=== PATIENT | female | born 1960 | race Caucasian/White ===

== ENCOUNTER 2019-02-17 17:40 | Emergency (ER) | payer MEDICAID ==
[~2019-02-17] VITALS: Ht 162.6 cm; Wt 123.0 kg
[2019-02-17 18:46] LABS: BASOPHILS # (AUTO) 0.1 X10'3 (0-0.2); BASOPHILS % (AUTO) 1.1 % (0-1); EOSINOPHILS % (AUTO) 0.8 % (0-6); HEMATOCRIT 38.8 % (35.0-45.0); HEMOGLOBIN 13.2 g/dl (12.0-16.0); MEAN CORPUSCULAR HEMOGLOBIN 32.1 PG (27.0-31.0); MEAN CORPUSCULAR HGB CONC 34.1 g/dL (33.0-36.5); MEAN CORPUSCULAR VOLUME 94.3 FL (78-98); MEAN PLATELET VOLUME 9.3 FL (7.4-10.4); MONOCYTES # (AUTO) 0.5 X10'3 (0-0.9); MONOCYTES % (AUTO) 9.3 % (2-12); NEUTROPHILS # (AUTO) 2.9 X10'3 (1.8-7.7); NEUTROPHILS % (AUTO) 52.8 % (42-75); PLATELET COUNT 188 X10'3 (140-440); RED BLOOD COUNT 4.12 X10'6 (4.20-5.60); RED CELL DISTRIBUTION WIDTH 12.8 % (11.5-14.5); WHITE BLOOD COUNT 5.5 X10'3 (4.5-11.0)
[2019-02-17 18:52] LABS: PARTIAL THROMBOPLASTIN TIME 29 SECONDS (22-32)
[2019-02-17 18:53] LABS: ALANINE AMINOTRANSFERASE 24 U/L (12-78); ALBUMIN 3.4 G/DL (3.4-5.0); ALBUMIN/GLOBULIN RATIO 0.9 (1.1-1.5); ALKALINE PHOSPHATASE 87 IU/L (46-116); ANION GAP 9 (8-16); ASPARTATE AMINO TRANSFERASE 14 U/L (10-37); BILIRUBIN,TOTAL 0.4 MG/DL (0.1-1.0); BLOOD UREA NITROGEN 16 MG/DL (7-18); BUN/CREATININE RATIO 21.6 (6.6-38.0); CALCIUM 8.8 MG/DL (8.5-10.1); CHLORIDE 106 MMOL/L (99-107); CREATININE 0.74 MG/DL (0.40-0.90); GLUCOSE 85 MG/DL (70-104); POTASSIUM 3.7 MMOL/L (3.5-5.1); SODIUM 139 MMOL/L (135-145); TOTAL CARBON DIOXIDE 24.5 MMOL/L (24-32); eGFR 80 ML/MIN
[2019-02-17 20:50] VITALS: BP 138/97
[2019-02-17] MEDS ORDERED: meclizine 12.5mg tablet PO ONE (20:50)
[2019-02-17] MEDS ORDERED: orphenadrine citrate 60mg/2ml inj. IM ONE (20:55)
[2019-02-17] MEDS ORDERED: ketorolac tromethamine 15mg/ml inj. IM ONE (20:55)
== END 2019-02-17 21:44 | disposition home or self-care (01) ==
LOC: ER 17:41
DX: S16.1XXA Strain of muscle, fascia and tendon at neck level, initial encounter (principal); R42 Dizziness and giddiness; Z98.51 Tubal ligation status; Z98.890 Other specified postprocedural states; X58.XXXA Exposure to other specified factors, initial encounter; Y93.89 Activity, other specified; Y92.89 Other specified places as the place of occurrence of the external cause; Y99.8 Other external cause status
CPT/HCPCS: 36415; 71045; 80053; 84484; 85025; 85610; 85730; 93005; 96372; 99284; J1885; J2360; J8597

== ENCOUNTER 2019-05-28 11:28 | Emergency (ER) | payer MEDICAID ==
[~2019-05-28] VITALS: Ht 162.6 cm; Wt 128.0 kg
[2019-05-28 11:31] VITALS: BP 139/97
[2019-05-28] MEDS ORDERED: PENI500T2 PO (11:49)
[2019-05-28] MEDS ORDERED: IBUP-1984 PO (11:49)
== END 2019-05-28 12:14 | disposition home or self-care (01) ==
LOC: ER 11:28
DX: K02.9 Dental caries, unspecified (principal); K04.7 Periapical abscess without sinus; Z98.51 Tubal ligation status; Z98.890 Other specified postprocedural states; Z79.2 Long term (current) use of antibiotics; Z79.899 Other long term (current) drug therapy
CPT/HCPCS: 99283

== ENCOUNTER 2019-07-11 09:25 | Emergency (ER) | payer MEDICAID ==
[~2019-07-11] VITALS: Ht 162.6 cm; Wt 129.0 kg
[2019-07-11 09:30] VITALS: BP 140/79
--- NOTE | 2019-07-11 09:39 | NUR ---
c/o cough, congestion, runny nose, body aches, ears feeling full, and sore throat x 5 days. Had loose stool but took immodium and it stopped.
--- NOTE | 2019-07-11 10:05 | NUR ---
Breaking primary RN, pt laughing with registration, stable
[2019-07-11] MEDS ORDERED: BENZ-16 PO (11:07)
[2019-07-11] MEDS ORDERED: AMOX-422 PO (11:07)
[2019-07-11] MEDS ORDERED: IBUP-1985 PO (11:19)
== END 2019-07-11 11:24 | disposition home or self-care (01) ==
LOC: ER 09:25
DX: J32.9 Chronic sinusitis, unspecified (principal); H92.03 Otalgia, bilateral; Z98.51 Tubal ligation status; Z98.890 Other specified postprocedural states; Z79.899 Other long term (current) drug therapy
CPT/HCPCS: 99283

== ENCOUNTER 2019-07-26 08:40 | Emergency (ER) | payer MEDICAID ==
[~2019-07-26] VITALS: Ht 165.1 cm; Wt 120.0 kg
[~2019-07-26 08:40] MED LIST: BENZ-16 PO; IBUP-1985 PO
[2019-07-26 08:56] VITALS: BP 128/77
[2019-07-26] MEDS ORDERED: BENZ-16 PO (09:43)
[2019-07-26] MEDS ORDERED: ROBDML PO (09:43)
[2019-07-26] MEDS ORDERED: ALBU18HF2 INH (09:43)
[2019-07-26] MEDS ORDERED: ATRNS (09:43)
[2019-07-26] MEDS ORDERED: IBUP-1985 PO (09:49)
== END 2019-07-26 09:52 | disposition home or self-care (01) ==
LOC: ER 08:41
DX: B34.9 Viral infection, unspecified (principal); J02.9 Acute pharyngitis, unspecified; R05 Cough; H92.03 Otalgia, bilateral; R09.89 Other specified symptoms and signs involving the circulatory and respiratory systems; Z98.51 Tubal ligation status; Z98.890 Other specified postprocedural states; Z79.899 Other long term (current) drug therapy
CPT/HCPCS: 71046; 99283

== ENCOUNTER 2019-07-28 08:19 | Emergency (ER) | payer MEDICAID ==
[~2019-07-28] VITALS: Ht 167.6 cm; Wt 140.0 kg
[~2019-07-28 08:19] MED LIST changes: +ALBU18HF2 INH; +ATRNS; +ROBDML PO
[2019-07-28 08:23] VITALS: BP 154/91
[2019-07-28] MEDS ORDERED: HYDR-4353 PO (10:08)
== END 2019-07-28 10:19 | disposition home or self-care (01) ==
LOC: ER 08:20
DX: J06.9 Acute upper respiratory infection, unspecified (principal); Z98.51 Tubal ligation status; Z98.890 Other specified postprocedural states
CPT/HCPCS: 99283

== ENCOUNTER 2019-08-05 17:12 | Emergency (ER) | payer MEDICAID ==
[~2019-08-05 17:12] MED LIST changes: +HYDR-4353 PO; -ROBDML PO
[2019-08-06] MEDS ORDERED: PRED20TA PO (09:23)
[2019-08-06] MEDS ORDERED: ALBU18HF2 INH (09:23)
[2019-08-06] MEDS ORDERED: DOXY100C43 PO (09:23)
== END 2019-08-05 18:43 | disposition left against medical advice (07) ==
LOC: ER 17:13
DX: R09.81 Nasal congestion (principal); J00 Acute nasopharyngitis [common cold]; R05 Cough; Z53.21 Procedure and treatment not carried out due to patient leaving prior to being seen by health care provider

== ENCOUNTER 2019-08-06 08:22 | Emergency (ER) | payer MEDICAID, OTHER ==
[~2019-08-06] VITALS: Ht 157.5 cm; Wt 122.7 kg
[2019-08-06 08:24] VITALS: BP 167/115
[2019-08-06] MEDS ORDERED: DOXY100C43 PO (09:23)
[2019-08-06] MEDS ORDERED: ALBU18HF2 INH (09:23)
[2019-08-06] MEDS ORDERED: PRED20TA PO (09:23)
== END 2019-08-06 09:48 | disposition home or self-care (01) ==
LOC: ER 08:22
DX: J20.9 Acute bronchitis, unspecified (principal); Z98.51 Tubal ligation status; Z98.890 Other specified postprocedural states; Z79.899 Other long term (current) drug therapy
CPT/HCPCS: 71046; 99283

== ENCOUNTER 2019-08-14 11:53 | Inpatient (IN) | payer MEDICAID, OTHER ==
[~2019-08-14] VITALS: Ht 157.5 cm; Wt 130.6 kg
[~2019-08-14 11:53] MED LIST changes: +DOXY100C43 PO; +PRED20TA PO
--- NOTE | 2019-08-14 12:29 | NUR ---
Assumed care of patient. Patient ambulate to room from lobby with steady gait. 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
[2019-08-14] MEDS ORDERED: diltiazem 5mg/ml 5ml inj. IV ONE (12:45)
[2019-08-14 13:08] LABS: BASOPHILS # (AUTO) 0.1 X10'3 (0-0.2); BASOPHILS % (AUTO) 0.7 % (0-1); EOSINOPHILS # (AUTO) 0.1 X10'3 (0-0.9); EOSINOPHILS % (AUTO) 0.9 % (0-6); HEMATOCRIT 43.8 % (35.0-45.0); LYMPHOCYTES # (AUTO) 2.7 X10'3 (1.1-4.8); LYMPHOCYTES % (AUTO) 32.7 % (21-51); MEAN CORPUSCULAR HEMOGLOBIN 31.6 PG (27.0-31.0); MEAN CORPUSCULAR HGB CONC 34.3 g/dL (33.0-36.5); MEAN CORPUSCULAR VOLUME 92.2 FL (78-98); MEAN PLATELET VOLUME 8.6 FL (7.4-10.4); MONOCYTES # (AUTO) 0.7 X10'3 (0-0.9); MONOCYTES % (AUTO) 8.9 % (2-12); NEUTROPHILS # (AUTO) 4.7 X10'3 (1.8-7.7); NEUTROPHILS % (AUTO) 56.8 % (42-75); PLATELET COUNT 296 X10'3 (140-440); RED BLOOD COUNT 4.75 X10'6 (4.20-5.60); RED CELL DISTRIBUTION WIDTH 12.9 % (11.5-14.5); WHITE BLOOD COUNT 8.3 X10'3 (4.5-11.0)
[2019-08-14 13:23] LABS: ALANINE AMINOTRANSFERASE 25 U/L (12-78); ALBUMIN 3.6 G/DL (3.4-5.0); ALKALINE PHOSPHATASE 93 IU/L (46-116); ANION GAP 9 (8-16); ASPARTATE AMINO TRANSFERASE 16 U/L (10-37); BILIRUBIN,TOTAL 0.5 MG/DL (0.1-1.0); BLOOD UREA NITROGEN 16 MG/DL (7-18); BUN/CREATININE RATIO 19.5 (6.6-38.0); CALCIUM 9.2 MG/DL (8.5-10.1); CHLORIDE 107 MMOL/L (99-107); CREATININE 0.82 MG/DL (0.40-0.90); GLUCOSE 95 MG/DL (70-104); POTASSIUM 4.1 MMOL/L (3.5-5.1); SODIUM 141 MMOL/L (135-145); TOTAL CARBON DIOXIDE 24.6 MMOL/L (24-32); TOTAL PROTEIN 7.2 G/DL (6.4-8.2); eGFR 71 ML/MIN
[2019-08-14] MEDS ORDERED: aspirin 81mg tab.chew PO ONE (13:30)
[2019-08-14] MEDS ORDERED: diltiazem-D5W 125mg/125ml 125 ML IV ONE (13:36)
[2019-08-14] MEDS ORDERED: morphine 4 MG/ML inj SYRINge IV ONE ×2 (13:40→20:40)
[2019-08-14] MEDS ORDERED: diltiazem-NS 100mg/100ml 100 ML IV ONE (13:40)
[2019-08-14] MEDS ORDERED: ondansetron/PF 4mg/2ml inj IV PRN (13:55)
[2019-08-14] MEDS ORDERED: potassium Cl 20 mEq SR tablet PO PRN ×2 (13:55)
[2019-08-14] MEDS ORDERED: potassium CL 10mEq/100ml bag 100 ML IV PRN ×2 (13:55)
[2019-08-14] MEDS ORDERED: acetaminophen 325mg tablet PO PRN ×2 (13:55)
[2019-08-14] MEDS ORDERED: magnesium 4gm in 100ml NS 100 ML IV PRN (13:55)
[2019-08-14] MEDS ORDERED: enoxaparin 100mg/ml syringe SUBCUT ONE (13:55)
[2019-08-14] MEDS ORDERED: mag hydrox/Alum hydrox/simeth 30ml oral suspension PO PRN (13:55)
[2019-08-14] MEDS ORDERED: magnesium Cl slow-release 64mg tablet PO PRN (13:55)
[2019-08-14] MEDS ORDERED: magnesium 2GM in 50ml NS 50 ML IV PRN (13:55)
[2019-08-14] MEDS ORDERED: nitroGLYCERIN 0.4mg SUBLingual tab SL PRN ×2 (13:55→20:25)
[2019-08-14] MEDS ORDERED: metoprolol tartrate 50mg tablet PO ONE (13:55)
[2019-08-14] MEDS ORDERED: magnesium hydroxide 30ml (MOM) UD suspension PO PRN (13:55)
[2019-08-14] MEDS ORDERED: NO HOME MEDS (13:58)
[2019-08-14] MEDS ORDERED: metoprolol tartrate 25mg tablet PO ONE (14:05)
[2019-08-14 14:21] LABS: URINE AMPHETAMINE SCREEN NEGATIVE (Neg); URINE BARBITUATE SCREEN NEGATIVE (Neg); URINE BENZODIAZEPINES SCREEN NEGATIVE (Neg); URINE CANNABINOID SCREEN NEGATIVE (Neg); URINE COCAINE SCREEN NEGATIVE (Neg); URINE METHADONE SCREEN NEGATIVE (Neg); URINE OPIATE SCREEN NEGATIVE (Neg); URINE PHENCYCLIDINE SCREEN NEGATIVE (Neg)
[2019-08-14 14:26] LABS: ETHANOL < 0.010 GM/DL (0.0-0.010)
--- NOTE | 2019-08-14 14:31 | NUR ---
Scanned in Diltizem infusion drip and before starting the medication patient requested to use bedside commode. While urinating patient self converted. HR in 80's. Dr. Joel informed. VO to hold off starting diltiazem drip at this time and repeat EKG being done.
[2019-08-14 15:30] VITALS: BP 120/82
--- NOTE | 2019-08-14 15:30 | NUR ---
Patient arrived on unit. 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 Patient describes 5/10 chest pain as burning, tightness, and pressure that is unchanged since patient arrived in ER. No palpitations. S1 & S2 heard. Lung sounds clear. No n/v, no diaphoresis. Will continue to monitor and assess for changes.
--- NOTE | 2019-08-14 16:53 | NUR ---
Paged Dr. Alvares regarding cardizem gtt: "PAGER ID: [phone] MESSAGE: [phone] P. L. Patient self-converted to sinus rhythm, cardizem drip not started in ER. Would you like me to start it? Krista ACCE [id number]"
[2019-08-14 18:00] VITALS: BP 131/61
[2019-08-14] MEDS: morphine 2 MG/ML inj. syringe IV PRN (18:01)
--- NOTE | 2019-08-14 18:37 | NUR ---
Problems reprioritized. Patient report given, questions answered & plan of care reviewed with JAMAR Gunn.
--- NOTE | 2019-08-14 18:40 | NUR ---
Patient in room MED 312. I have received report from JAMAR Gunn and had the opportunity to ask questions and assume patient care.
[2019-08-14] MEDS: metoprolol tartrate 25mg tablet PO SCH (19:42)
[2019-08-14] MEDS: K and/or MAG REPLACEMENT MC SCH (20:00)
[2019-08-14] MEDS ORDERED: morphine 4 MG/ML inj SYRINge IM ONE (20:05)
[2019-08-14] MEDS ORDERED: nitroGLYCERIN 0.4mg/hour patch TD ONE (20:05)
[2019-08-14] MEDS ORDERED: aminophylline 250mg/10ml inj. IV PRN (20:25)
[2019-08-14] MEDS ORDERED: metoprolol tartrate 1mg/ml inj IV PRN ×2 (20:25)
[2019-08-14] MEDS ORDERED: regadenoson 0.4mg/5ml syringe IV ONE (20:25)
[2019-08-14 22:00] VITALS: BP 117/64
--- NOTE | 2019-08-14 22:47 | NUR ---
Patient in room MED 312. I have received report from Lisa and had the opportunity to ask questions and assume patient care.
[2019-08-15] VITALS (10 sets, daily range): BP systolic 94–125; BP diastolic 59–75
[2019-08-15 01:18] LABS: BASOPHILS # (AUTO) 0.1 X10'3 (0-0.2); BASOPHILS % (AUTO) 0.7 % (0-1); EOSINOPHILS # (AUTO) 0.1 X10'3 (0-0.9); EOSINOPHILS % (AUTO) 1.3 % (0-6); HEMATOCRIT 37.3 % (35.0-45.0); HEMOGLOBIN 12.7 g/dl (12.0-16.0); LYMPHOCYTES # (AUTO) 2.7 X10'3 (1.1-4.8); LYMPHOCYTES % (AUTO) 37.3 % (21-51); MEAN CORPUSCULAR HEMOGLOBIN 32.1 PG (27.0-31.0); MEAN CORPUSCULAR HGB CONC 34.2 g/dL (33.0-36.5); MEAN CORPUSCULAR VOLUME 93.8 FL (78-98); MEAN PLATELET VOLUME 8.8 FL (7.4-10.4); MONOCYTES # (AUTO) 0.6 X10'3 (0-0.9); MONOCYTES % (AUTO) 8.6 % (2-12); NEUTROPHILS # (AUTO) 3.8 X10'3 (1.8-7.7); NEUTROPHILS % (AUTO) 52.1 % (42-75); PLATELET COUNT 253 X10'3 (140-440); RED BLOOD COUNT 3.97 X10'6 (4.20-5.60); RED CELL DISTRIBUTION WIDTH 12.8 % (11.5-14.5); WHITE BLOOD COUNT 7.3 X10'3 (4.5-11.0)
[2019-08-15] MEDS: morphine 2 MG/ML inj. syringe IV PRN ×2 (01:25→11:49)
[2019-08-15 01:32] LABS: ANION GAP 8 (8-16); BLOOD UREA NITROGEN 21 MG/DL (7-18); BUN/CREATININE RATIO 21.9 (6.6-38.0); CALCIUM 8.5 MG/DL (8.5-10.1); CHLORIDE 104 MMOL/L (99-107); CREATININE 0.96 MG/DL (0.40-0.90); GLUCOSE 118 MG/DL (70-104); MAGNESIUM 1.9 MG/DL (1.5-2.4); POTASSIUM 3.6 MMOL/L (3.5-5.1); SODIUM 139 MMOL/L (135-145); TOTAL CARBON DIOXIDE 26.8 MMOL/L (24-32); eGFR 59 ML/MIN
--- NOTE | 2019-08-15 06:27 | NUR ---
Patient in room MED 312. I have received report from JAMAR Parnell and had the opportunity to ask questions and assume patient care.
[2019-08-15] MEDS: K and/or MAG REPLACEMENT MC SCH (07:52)
[2019-08-15] MEDS: metoprolol tartrate 25mg tablet PO SCH (07:52)
[2019-08-15] MEDS ORDERED: enoxaparin 100mg/ml syringe SUBCUT SCH (08:00)
[2019-08-15] MEDS ORDERED: enoxaparin 30mg/0.3ml syringe SUBCUT SCH (08:00)
[2019-08-15] MEDS ORDERED: aspirin 81mg tablet.DR PO SCH (08:00)
--- NOTE | 2019-08-15 12:33 | NUR ---
PAGER ID: [phone] MESSAGE: [phone]. pt. Rosie Medina. pt. ace scan report is ready. can I let the pt. eat lunch? thank you. JAMAR Garsia [phone]
[2019-08-15] MEDS ORDERED: ASPI81TA52 PO (15:00)
[2019-08-15] MEDS ORDERED: METO25TA6 PO (15:02)
[2019-08-15] MEDS ORDERED: NITR0.4T51 SL (15:02)
--- NOTE | 2019-08-15 18:47 | NUR ---
pt was discharged from facility at 1700. pt. refused staff escort and walked down to private vehicle accompanied by friend. pt. signed and understood all paperwork. IV was d/c intact. pt. has no PCP at this time and understands that she needs to establish care. staff reached out to case management for help on this matter. all new meds were called into [facility] on [address] pt. left with all belongings.
== END 2019-08-15 17:00 | disposition home or self-care (01) | DRG 201 ==
LOC: ER 11:53 → ED HOLD 13:51 → MED 3N 16:55
PROVIDERS: ADMIT Hospitalist; ATTEND Hospitalist
PROC: 4A02XM4 Measurement of Cardiac Total Activity, External Approach (ICD-10-PCS; principal; 2019-08-15)
PROC: 3E033HZ Introduction of Radioactive Substance into Peripheral Vein, Percutaneous Approach (ICD-10-PCS; 2019-08-15)
DX: I48.91 Unspecified atrial fibrillation (principal); R07.89 Other chest pain; Z98.51 Tubal ligation status; Z79.899 Other long term (current) drug therapy
CPT/HCPCS: 36415; 71045; 78452; 80048; 80053; 80305; 80320; 83735; 84443; 84484; 85025; 87081; 93005; 93017; 93306; 96374; 96375; 99291; A9500; GO378; J1650; J2270; J2785; J3490

== ENCOUNTER 2019-08-16 20:38 | Emergency (ER) | payer MEDICAID ==
[~2019-08-16] VITALS: Ht 157.5 cm; Wt 127.3 kg
[~2019-08-16 20:38] MED LIST changes: -ALBU18HF2 INH; +ASPI81TA52 PO; -ATRNS; -BENZ-16 PO; -DOXY100C43 PO; -HYDR-4353 PO; -IBUP-1985 PO; +METO25TA6 PO; +NITR0.4T51 SL; -PRED20TA PO
[2019-08-16 21:27] LABS: ALANINE AMINOTRANSFERASE 26 U/L (12-78); ALBUMIN 3.5 G/DL (3.4-5.0); ALKALINE PHOSPHATASE 105 IU/L (46-116); ANION GAP 10 (8-16); ASPARTATE AMINO TRANSFERASE 17 U/L (10-37); BILIRUBIN,TOTAL 0.3 MG/DL (0.1-1.0); BLOOD UREA NITROGEN 18 MG/DL (7-18); BUN/CREATININE RATIO 21.2 (6.6-38.0); CALCIUM 8.5 MG/DL (8.5-10.1); CHLORIDE 105 MMOL/L (99-107); CREATININE 0.85 MG/DL (0.40-0.90); GLUCOSE 123 MG/DL (70-104); POTASSIUM 3.6 MMOL/L (3.5-5.1); SODIUM 141 MMOL/L (135-145); TOTAL PROTEIN 6.9 G/DL (6.4-8.2); eGFR 68 ML/MIN
[2019-08-16 21:32] LABS: BASOPHILS % (AUTO) 0.6 % (0-1); EOSINOPHILS # (AUTO) 0.1 X10'3 (0-0.9); EOSINOPHILS % (AUTO) 0.8 % (0-6); HEMATOCRIT 38.2 % (35.0-45.0); HEMOGLOBIN 13.1 g/dl (12.0-16.0); LYMPHOCYTES # (AUTO) 1.9 X10'3 (1.1-4.8); MEAN CORPUSCULAR HEMOGLOBIN 31.7 PG (27.0-31.0); MEAN CORPUSCULAR HGB CONC 34.3 g/dL (33.0-36.5); MEAN CORPUSCULAR VOLUME 92.5 FL (78-98); MEAN PLATELET VOLUME 8.9 FL (7.4-10.4); MONOCYTES # (AUTO) 0.7 X10'3 (0-0.9); MONOCYTES % (AUTO) 9.4 % (2-12); NEUTROPHILS # (AUTO) 4.5 X10'3 (1.8-7.7); NEUTROPHILS % (AUTO) 63.2 % (42-75); PLATELET COUNT 234 X10'3 (140-440); RED BLOOD COUNT 4.13 X10'6 (4.20-5.60); RED CELL DISTRIBUTION WIDTH 12.7 % (11.5-14.5); WHITE BLOOD COUNT 7.2 X10'3 (4.5-11.0)
[2019-08-16] MEDS ORDERED: diphenhydrAMINE 25mg capsule PO ONE (22:10)
[2019-08-16] MEDS ORDERED: LORazepam 1 MG tablet PO ONE (22:10)
[2019-08-16 22:40] LABS: D-DIMER 0.34 MG/L FEU (0-0.50)
[2019-08-16 23:05] VITALS: BP 145/90
[2019-08-16 23:07] LABS: MAGNESIUM 1.9 MG/DL (1.5-2.4)
== END 2019-08-16 23:07 | disposition home or self-care (01) ==
LOC: ER 20:39
DX: R06.02 Shortness of breath (principal); R07.89 Other chest pain; R11.2 Nausea with vomiting, unspecified; M54.6 Pain in thoracic spine; I48.91 Unspecified atrial fibrillation; Z79.2 Long term (current) use of antibiotics; Z79.899 Other long term (current) drug therapy; Z98.51 Tubal ligation status; Z98.890 Other specified postprocedural states
CPT/HCPCS: 36415; 71045; 80053; 83735; 83880; 84484; 85025; 85379; 93005; 99284; Q0163

== ENCOUNTER 2019-08-31 11:36 | Emergency (ER) | payer MEDICAID ==
[~2019-08-31] VITALS: Ht 162.6 cm; Wt 81.8 kg
[~2019-08-31 11:36] MED LIST changes: +CARCD120C PO
--- NOTE | 2019-08-31 12:18 | NUR ---
2 UNSUCCESSFUL IV ATTEMPTS, PT ASKED THAT IV BE LEFT OUT AND JUST LABS DRAWN
[2019-08-31 12:42] LABS: BASOPHILS % (AUTO) 0.8 % (0-1); EOSINOPHILS # (AUTO) 0.1 X10'3 (0-0.9); EOSINOPHILS % (AUTO) 1.4 % (0-6); HEMATOCRIT 40.8 % (35.0-45.0); HEMOGLOBIN 13.9 g/dl (12.0-16.0); LYMPHOCYTES # (AUTO) 1.2 X10'3 (1.1-4.8); LYMPHOCYTES % (AUTO) 29.4 % (21-51); MEAN CORPUSCULAR HEMOGLOBIN 31.7 PG (27.0-31.0); MEAN CORPUSCULAR HGB CONC 34.1 g/dL (33.0-36.5); MEAN CORPUSCULAR VOLUME 92.9 FL (78-98); MEAN PLATELET VOLUME 8.8 FL (7.4-10.4); MONOCYTES # (AUTO) 0.4 X10'3 (0-0.9); MONOCYTES % (AUTO) 8.4 % (2-12); NEUTROPHILS # (AUTO) 2.5 X10'3 (1.8-7.7); PLATELET COUNT 241 X10'3 (140-440); RED BLOOD COUNT 4.39 X10'6 (4.20-5.60); RED CELL DISTRIBUTION WIDTH 12.8 % (11.5-14.5); WHITE BLOOD COUNT 4.2 X10'3 (4.5-11.0)
[2019-08-31] MEDS ORDERED: diltiazem 30mg tablet PO ONE (12:45)
[2019-08-31] MEDS ORDERED: SOTA80TA73 PO (12:48)
[2019-08-31] MEDS ORDERED: DILT-36 PO (12:48)
[2019-08-31 12:55] LABS: ALANINE AMINOTRANSFERASE 21 U/L (12-78); ALBUMIN 3.5 G/DL (3.4-5.0); ALBUMIN/GLOBULIN RATIO 1.1 (1.1-1.5); ALKALINE PHOSPHATASE 71 IU/L (46-116); ANION GAP 7 (8-16); ASPARTATE AMINO TRANSFERASE 22 U/L (10-37); BILIRUBIN,TOTAL 0.5 MG/DL (0.1-1.0); BLOOD UREA NITROGEN 13 MG/DL (7-18); BUN/CREATININE RATIO 18.1 (6.6-38.0); CALCIUM 8.9 MG/DL (8.5-10.1); CHLORIDE 108 MMOL/L (99-107); CREATININE 0.72 MG/DL (0.40-0.90); GLUCOSE 109 MG/DL (70-104); POTASSIUM 4.1 MMOL/L (3.5-5.1); SODIUM 141 MMOL/L (135-145); TOTAL CARBON DIOXIDE 25.7 MMOL/L (24-32); TOTAL PROTEIN 6.8 G/DL (6.4-8.2); eGFR 83 ML/MIN
[2019-08-31 13:10] VITALS: BP 105/75
== END 2019-08-31 13:12 | disposition home or self-care (01) ==
LOC: ER 11:37
DX: I48.91 Unspecified atrial fibrillation (principal); Z98.51 Tubal ligation status; Z98.890 Other specified postprocedural states; Z79.82 Long term (current) use of aspirin; Z79.899 Other long term (current) drug therapy
CPT/HCPCS: 36415; 80053; 84484; 85025; 93005; 99284

== ENCOUNTER 2019-09-04 13:26 | Emergency (ER) | payer MEDICAID ==
[~2019-09-04] VITALS: Ht 157.5 cm; Wt 126.0 kg
[~2019-09-04 13:26] MED LIST changes: +DILT-36 PO; +SOTA80TA73 PO
[2019-09-04] MEDS ORDERED: aspirin 81mg tab.chew PO ONE (13:50)
[2019-09-04 14:28] LABS: BASOPHILS # (AUTO) 0.1 X10'3 (0-0.2); BASOPHILS % (AUTO) 0.9 % (0-1); EOSINOPHILS # (AUTO) 0.1 X10'3 (0-0.9); EOSINOPHILS % (AUTO) 0.9 % (0-6); HEMATOCRIT 41.3 % (35.0-45.0); LYMPHOCYTES # (AUTO) 1.8 X10'3 (1.1-4.8); MEAN CORPUSCULAR HEMOGLOBIN 31.4 PG (27.0-31.0); MEAN CORPUSCULAR VOLUME 92.3 FL (78-98); MEAN PLATELET VOLUME 9.3 FL (7.4-10.4); MONOCYTES # (AUTO) 0.5 X10'3 (0-0.9); MONOCYTES % (AUTO) 7.1 % (2-12); NEUTROPHILS # (AUTO) 4.2 X10'3 (1.8-7.7); NEUTROPHILS % (AUTO) 63.1 % (42-75); PLATELET COUNT 250 X10'3 (140-440); RED BLOOD COUNT 4.47 X10'6 (4.20-5.60); RED CELL DISTRIBUTION WIDTH 12.9 % (11.5-14.5); WHITE BLOOD COUNT 6.6 X10'3 (4.5-11.0)
[2019-09-04 15:00] LABS: ALANINE AMINOTRANSFERASE 32 U/L (12-78); ALBUMIN 3.9 G/DL (3.4-5.0); ALBUMIN/GLOBULIN RATIO 1.1 (1.1-1.5); ALKALINE PHOSPHATASE 86 IU/L (46-116); ANION GAP 8 (8-16); ASPARTATE AMINO TRANSFERASE 21 U/L (10-37); BILIRUBIN,TOTAL 0.4 MG/DL (0.1-1.0); BLOOD UREA NITROGEN 23 MG/DL (7-18); BUN/CREATININE RATIO 32.9 (6.6-38.0); CALCIUM 9.2 MG/DL (8.5-10.1); CHLORIDE 106 MMOL/L (99-107); GLUCOSE 100 MG/DL (70-104); SODIUM 139 MMOL/L (135-145); TOTAL CARBON DIOXIDE 25.2 MMOL/L (24-32); TOTAL PROTEIN 7.4 G/DL (6.4-8.2); eGFR 85 ML/MIN
[2019-09-04 15:46] VITALS: BP 126/70
== END 2019-09-04 15:49 | disposition home or self-care (01) ==
LOC: ER 13:27
DX: R07.89 Other chest pain (principal); I48.91 Unspecified atrial fibrillation; Z98.51 Tubal ligation status; Z79.82 Long term (current) use of aspirin; Z79.899 Other long term (current) drug therapy
CPT/HCPCS: 36415; 71045; 80053; 83735; 83880; 84484; 85025; 93005; 99284

== ENCOUNTER 2019-09-14 07:19 | Emergency (ER) | payer MEDICAID ==
[~2019-09-14] VITALS: Ht 162.6 cm; Wt 122.7 kg
[2019-09-14] MEDS ORDERED: diltiazem 5mg/ml 5ml inj. IV ONE (08:00)
[2019-09-14 08:07] LABS: BASOPHILS % (AUTO) 0.9 % (0-1); HEMATOCRIT 41.6 % (35.0-45.0); HEMOGLOBIN 14.1 g/dl (12.0-16.0); LYMPHOCYTES # (AUTO) 1.9 X10'3 (1.1-4.8); LYMPHOCYTES % (AUTO) 41.1 % (21-51); MEAN CORPUSCULAR HEMOGLOBIN 31.2 PG (27.0-31.0); MEAN CORPUSCULAR HGB CONC 33.9 g/dL (33.0-36.5); MEAN CORPUSCULAR VOLUME 91.8 FL (78-98); MEAN PLATELET VOLUME 8.9 FL (7.4-10.4); MONOCYTES # (AUTO) 0.5 X10'3 (0-0.9); MONOCYTES % (AUTO) 9.9 % (2-12); NEUTROPHILS # (AUTO) 2.2 X10'3 (1.8-7.7); NEUTROPHILS % (AUTO) 47.1 % (42-75); PLATELET COUNT 249 X10'3 (140-440); RED BLOOD COUNT 4.53 X10'6 (4.20-5.60); WHITE BLOOD COUNT 4.6 X10'3 (4.5-11.0)
[2019-09-14 08:17] LABS: ALANINE AMINOTRANSFERASE 21 U/L (12-78); ALBUMIN 3.6 G/DL (3.4-5.0); ALBUMIN/GLOBULIN RATIO 1.1 (1.1-1.5); ALKALINE PHOSPHATASE 73 IU/L (46-116); ANION GAP 9 (8-16); ASPARTATE AMINO TRANSFERASE 19 U/L (10-37); BILIRUBIN,TOTAL 0.5 MG/DL (0.1-1.0); BLOOD UREA NITROGEN 16 MG/DL (7-18); BUN/CREATININE RATIO 19.8 (6.6-38.0); CALCIUM 8.7 MG/DL (8.5-10.1); CHLORIDE 107 MMOL/L (99-107); CREATININE 0.81 MG/DL (0.40-0.90); GLUCOSE 118 MG/DL (70-104); POTASSIUM 3.5 MMOL/L (3.5-5.1); SODIUM 142 MMOL/L (135-145); TOTAL CARBON DIOXIDE 26.1 MMOL/L (24-32); eGFR 72 ML/MIN
[2019-09-14] MEDS ORDERED: ketorolac tromethamine 15mg/ml inj. IV ONE (09:00)
[2019-09-14 10:34] VITALS: BP 119/64
[2019-09-15] MEDS ORDERED: [UNRECOGNIZED DRUG - CODE] PO (00:57)
== END 2019-09-14 10:37 | disposition home or self-care (01) ==
LOC: ER 07:19
DX: I48.20 Chronic atrial fibrillation, unspecified (principal); Z98.51 Tubal ligation status; Z98.890 Other specified postprocedural states; Z79.82 Long term (current) use of aspirin; Z79.01 Long term (current) use of anticoagulants; Z79.899 Other long term (current) drug therapy
CPT/HCPCS: 36415; 71045; 80053; 84484; 85025; 93005; 96374; 96375; 99285; J1885; J3490

== ENCOUNTER 2019-09-15 00:38 | Emergency (ER) | payer MEDICAID ==
[~2019-09-15] VITALS: Ht 162.6 cm; Wt 122.7 kg
[2019-09-15] MEDS ORDERED: [UNRECOGNIZED DRUG - CODE] PO (00:57)
[2019-09-15] MEDS ORDERED: magnesium 2GM in 50ml NS 50 ML IV ONE (01:05)
[2019-09-15] MEDS ORDERED: aspirin 325mg tablet PO ONE (01:05)
[2019-09-15] MEDS ORDERED: normal saline 1000ml 1,000 ML IV ONE (01:05)
[2019-09-15] MEDS ORDERED: metoprolol tartrate 1mg/ml inj IV ONE (01:05)
[2019-09-15] MEDS ORDERED: nitroGLYCERIN 0.4mg SUBLingual tab SL PRN (01:05)
[2019-09-15 01:14] LABS: BASOPHILS # (AUTO) 0.1 X10'3 (0-0.2); BASOPHILS % (AUTO) 1.2 % (0-1); EOSINOPHILS # (AUTO) 0.1 X10'3 (0-0.9); EOSINOPHILS % (AUTO) 1.1 % (0-6); HEMATOCRIT 40.3 % (35.0-45.0); HEMOGLOBIN 14.1 g/dl (12.0-16.0); LYMPHOCYTES # (AUTO) 2.5 X10'3 (1.1-4.8); LYMPHOCYTES % (AUTO) 42.3 % (21-51); MEAN CORPUSCULAR HEMOGLOBIN 32.4 PG (27.0-31.0); MEAN CORPUSCULAR HGB CONC 34.9 g/dL (33.0-36.5); MEAN CORPUSCULAR VOLUME 92.7 FL (78-98); MEAN PLATELET VOLUME 8.8 FL (7.4-10.4); MONOCYTES # (AUTO) 0.5 X10'3 (0-0.9); MONOCYTES % (AUTO) 8.3 % (2-12); NEUTROPHILS # (AUTO) 2.7 X10'3 (1.8-7.7); NEUTROPHILS % (AUTO) 47.1 % (42-75); PLATELET COUNT 252 X10'3 (140-440); RED BLOOD COUNT 4.34 X10'6 (4.20-5.60); RED CELL DISTRIBUTION WIDTH 12.7 % (11.5-14.5); WHITE BLOOD COUNT 5.8 X10'3 (4.5-11.0)
[2019-09-15] MEDS ORDERED: ketorolac trometh. 30mg/ml inj. IV ONE (01:15)
[2019-09-15 01:25] LABS: ALANINE AMINOTRANSFERASE 22 U/L (12-78); ALBUMIN 3.6 G/DL (3.4-5.0); ALBUMIN/GLOBULIN RATIO 1.1 (1.1-1.5); ALKALINE PHOSPHATASE 115 IU/L (46-116); ANION GAP 9 (8-16); ASPARTATE AMINO TRANSFERASE 15 U/L (10-37); BILIRUBIN,TOTAL 0.2 MG/DL (0.1-1.0); BLOOD UREA NITROGEN 22 MG/DL (7-18); CALCIUM 8.8 MG/DL (8.5-10.1); CHLORIDE 107 MMOL/L (99-107); CREATININE 1.05 MG/DL (0.40-0.90); GLUCOSE 119 MG/DL (70-104); POTASSIUM 3.4 MMOL/L (3.5-5.1); SODIUM 142 MMOL/L (135-145); TOTAL CARBON DIOXIDE 26.1 MMOL/L (24-32); eGFR 53 ML/MIN
[2019-09-15] MEDS ORDERED: etomidate 2mg/ml inj. IV ONE (01:50)
[2019-09-15] MEDS ORDERED: enoxaparin 100mg/ml syringe SUBCUT ONE (01:50)
--- NOTE | 2019-09-15 02:12 | NUR ---
CONSENT FOR SYNCHRONIZED CARDIOVERSION SIGNED BY PT WITH WITNESSES VILLA AND ZAIDA DEL REAL AND SIGNED BY PHYSICIAN
--- NOTE | 2019-09-15 02:18 | NUR ---
SNYCHRONIZED CARDIOVERSION NOT PERFORMED PT CONVERSTED TO SINUS RHYTHM AFTER ADMINISTRATION OF ETOMIDATE
[2019-09-15 03:01] VITALS: BP 113/67
== END 2019-09-15 03:03 | disposition home or self-care (01) ==
LOC: ER 00:39
DX: I48.91 Unspecified atrial fibrillation (principal); E66.9 Obesity, unspecified; Z98.890 Other specified postprocedural states; Z98.51 Tubal ligation status; Z79.82 Long term (current) use of aspirin; Z79.899 Other long term (current) drug therapy
CPT/HCPCS: 36415; 71045; 80053; 84484; 85025; 93005; 96365; 96372; 96375; 99285; J1885; J3475; J7030; 94760; J1650; J3490

== ENCOUNTER 2019-09-21 03:04 | Emergency (ER) | payer MEDICAID ==
[~2019-09-21] VITALS: Ht 162.6 cm; Wt 122.0 kg
[~2019-09-21 03:04] MED LIST changes: -ASPI81TA52 PO; -CARCD120C PO; -METO25TA6 PO; -NITR0.4T51 SL; -SOTA80TA73 PO; +[UNRECOGNIZED DRUG - CODE] PO
[2019-09-21] MEDS ORDERED: diltiazem 5mg/ml 5ml inj. IV ONE (04:00)
[2019-09-21] MEDS ORDERED: ketorolac trometh. 30mg/ml inj. IV ONE (04:30)
[2019-09-21 04:40] LABS: BASOPHILS % (AUTO) 0.7 % (0-1); EOSINOPHILS # (AUTO) 0.1 X10'3 (0-0.9); EOSINOPHILS % (AUTO) 1.1 % (0-6); HEMATOCRIT 40.6 % (35.0-45.0); HEMOGLOBIN 13.8 g/dl (12.0-16.0); LYMPHOCYTES # (AUTO) 2.3 X10'3 (1.1-4.8); LYMPHOCYTES % (AUTO) 39.8 % (21-51); MEAN CORPUSCULAR HEMOGLOBIN 31.2 PG (27.0-31.0); MEAN CORPUSCULAR HGB CONC 34.1 g/dL (33.0-36.5); MEAN CORPUSCULAR VOLUME 91.6 FL (78-98); MEAN PLATELET VOLUME 8.6 FL (7.4-10.4); MONOCYTES # (AUTO) 0.5 X10'3 (0-0.9); MONOCYTES % (AUTO) 9.2 % (2-12); NEUTROPHILS # (AUTO) 2.9 X10'3 (1.8-7.7); NEUTROPHILS % (AUTO) 49.2 % (42-75); PLATELET COUNT 236 X10'3 (140-440); RED BLOOD COUNT 4.44 X10'6 (4.20-5.60); RED CELL DISTRIBUTION WIDTH 12.7 % (11.5-14.5); WHITE BLOOD COUNT 5.9 X10'3 (4.5-11.0)
[2019-09-21 04:57] LABS: ALANINE AMINOTRANSFERASE 21 U/L (12-78); ALBUMIN 3.5 G/DL (3.4-5.0); ALBUMIN/GLOBULIN RATIO 1.1 (1.1-1.5); ALKALINE PHOSPHATASE 79 IU/L (46-116); ANION GAP 10 (8-16); ASPARTATE AMINO TRANSFERASE 15 U/L (10-37); BILIRUBIN,TOTAL 0.3 MG/DL (0.1-1.0); BLOOD UREA NITROGEN 23 MG/DL (7-18); BUN/CREATININE RATIO 27.1 (6.6-38.0); CHLORIDE 107 MMOL/L (99-107); CREATININE 0.85 MG/DL (0.40-0.90); GLUCOSE 110 MG/DL (70-104); POTASSIUM 3.5 MMOL/L (3.5-5.1); SODIUM 142 MMOL/L (135-145); TOTAL CARBON DIOXIDE 25.4 MMOL/L (24-32); TOTAL PROTEIN 6.8 G/DL (6.4-8.2); eGFR 68 ML/MIN
[2019-09-21 05:29] VITALS: BP 109/75
== END 2019-09-21 06:02 | disposition home or self-care (01) ==
LOC: ER 03:05
DX: I48.91 Unspecified atrial fibrillation (principal); Z98.51 Tubal ligation status; Z98.890 Other specified postprocedural states; Z79.899 Other long term (current) drug therapy
CPT/HCPCS: 36415; 71045; 80053; 84484; 85025; 93005; 96374; 96375; 99285; J1885; J3490

== ENCOUNTER 2019-10-21 16:31 | Emergency (ER) | payer MEDICAID ==
[~2019-10-21] VITALS: Ht 160 cm; Wt 125.7 kg
[2019-10-21] MEDS ORDERED: proparacaine 0.5% ophthalmic drops 15ml EACHEYE ONE (17:45)
[2019-10-21] MEDS ORDERED: HYDROcodone/acetaminophen 5mg/325mg tablet PO ONE (18:45)
--- NOTE | 2019-10-21 19:03 | NUR ---
LAB AT BEDSIDE REATTEMPING PT LAB DRAW . PT HAS HAD THREE PREVIOUS DRAW ATTEMPTS WITHOUT SUCCESS . BHAVIK DANIEL
[2019-10-21 19:21] LABS: BASOPHILS # (AUTO) 0.1 X10'3 (0-0.2); EOSINOPHILS # (AUTO) 0.1 X10'3 (0-0.9); EOSINOPHILS % (AUTO) 1.1 % (0-6); HEMATOCRIT 40.1 % (35.0-45.0); HEMOGLOBIN 13.6 g/dl (12.0-16.0); LYMPHOCYTES % (AUTO) 35.2 % (21-51); MEAN CORPUSCULAR HEMOGLOBIN 31.5 PG (27.0-31.0); MEAN CORPUSCULAR HGB CONC 33.9 g/dL (33.0-36.5); MEAN CORPUSCULAR VOLUME 92.7 FL (78-98); MONOCYTES # (AUTO) 0.4 X10'3 (0-0.9); MONOCYTES % (AUTO) 7.4 % (2-12); NEUTROPHILS # (AUTO) 3.1 X10'3 (1.8-7.7); NEUTROPHILS % (AUTO) 55.3 % (42-75); PLATELET COUNT 188 X10'3 (140-440); RED BLOOD COUNT 4.32 X10'6 (4.20-5.60); RED CELL DISTRIBUTION WIDTH 12.7 % (11.5-14.5); WHITE BLOOD COUNT 5.6 X10'3 (4.5-11.0)
[2019-10-21 19:34] LABS: ALBUMIN 3.3 G/DL (3.4-5.0); ANION GAP 8 (8-16); BLOOD UREA NITROGEN 19 MG/DL (7-18); BUN/CREATININE RATIO 18.3 (6.6-38.0); CALCIUM 8.7 MG/DL (8.5-10.1); CHLORIDE 107 MMOL/L (99-107); CREATININE 1.04 MG/DL (0.40-0.90); GLUCOSE 100 MG/DL (70-104); POTASSIUM 3.6 MMOL/L (3.5-5.1); SODIUM 141 MMOL/L (135-145); TOTAL CARBON DIOXIDE 26.5 MMOL/L (24-32); eGFR 54 ML/MIN
[2019-10-21] MEDS ORDERED: ketorolac tromethamine 15mg/ml inj. IM ONE (20:20)
[2019-10-21] MEDS ORDERED: morphine 4 MG/ML inj SYRINge IM ONE (21:25)
[2019-10-21 21:57] VITALS: BP 126/79
== END 2019-10-21 21:55 | disposition home or self-care (01) ==
LOC: ER 16:31
DX: H57.11 Ocular pain, right eye (principal); H53.8 Other visual disturbances; I48.91 Unspecified atrial fibrillation; Z98.51 Tubal ligation status
CPT/HCPCS: 36415; 80048; 85025; 85651; 93005; 96372; 99284; J1885; J2270; 99285

== ENCOUNTER 2019-12-15 19:35 | Emergency (ER) | payer MEDICAID ==
[~2019-12-15] VITALS: Ht 157.5 cm; Wt 120.5 kg
[~2019-12-15 19:35] MED LIST changes: +FLEC100T35 PO; -[UNRECOGNIZED DRUG - CODE] PO
[2019-12-15 20:01] LABS: BASOPHILS % (AUTO) 0.8 % (0-1); EOSINOPHILS # (AUTO) 0.1 X10'3 (0-0.9); EOSINOPHILS % (AUTO) 0.8 % (0-6); HEMATOCRIT 39.1 % (35.0-45.0); HEMOGLOBIN 13.1 g/dl (12.0-16.0); LYMPHOCYTES # (AUTO) 2.1 X10'3 (1.1-4.8); LYMPHOCYTES % (AUTO) 34.2 % (21-51); MEAN CORPUSCULAR HGB CONC 33.5 g/dL (33.0-36.5); MEAN CORPUSCULAR VOLUME 92.5 FL (78-98); MEAN PLATELET VOLUME 8.5 FL (7.4-10.4); MONOCYTES # (AUTO) 0.5 X10'3 (0-0.9); MONOCYTES % (AUTO) 8.1 % (2-12); NEUTROPHILS # (AUTO) 3.5 X10'3 (1.8-7.7); NEUTROPHILS % (AUTO) 56.1 % (42-75); PLATELET COUNT 216 X10'3 (140-440); RED BLOOD COUNT 4.22 X10'6 (4.20-5.60); RED CELL DISTRIBUTION WIDTH 13.1 % (11.5-14.5); WHITE BLOOD COUNT 6.2 X10'3 (4.5-11.0)
[2019-12-15] MEDS ORDERED: ketorolac trometh inj. 60 MG/2 ML VIAL IM ONE (20:15)
[2019-12-15 20:17] LABS: ALANINE AMINOTRANSFERASE 20 U/L (12-78); ALBUMIN 3.4 G/DL (3.4-5.0); ALBUMIN/GLOBULIN RATIO 0.9 (1.1-1.5); ALKALINE PHOSPHATASE 87 IU/L (46-116); ANION GAP 10 (8-16); ASPARTATE AMINO TRANSFERASE 25 U/L (10-37); BILIRUBIN,TOTAL 0.3 MG/DL (0.1-1.0); BLOOD UREA NITROGEN 20 MG/DL (7-18); CALCIUM 8.5 MG/DL (8.5-10.1); CHLORIDE 104 MMOL/L (99-107); CREATININE 0.91 MG/DL (0.40-0.90); GLUCOSE 95 MG/DL (70-104); POTASSIUM 3.8 MMOL/L (3.5-5.1); SODIUM 140 MMOL/L (135-145); TOTAL CARBON DIOXIDE 25.9 MMOL/L (24-32); TOTAL PROTEIN 7.1 G/DL (6.4-8.2); eGFR 63 ML/MIN
[2019-12-15 20:23] LABS: MAGNESIUM 1.9 MG/DL (1.5-2.4)
[2019-12-15 20:27] LABS: D-DIMER 0.26 MG/L FEU (0-0.50)
[2019-12-15] MEDS ORDERED: mag hydrox/Alum hydrox/simeth 30ml oral suspension PO ONE (20:55)
[2019-12-15] MEDS ORDERED: HYDROcodone/acetaminophen 5mg/325mg tablet PO ONE (20:55)
[2019-12-15] MEDS ORDERED: LORazepam 1 MG tablet PO ONE (20:55)
[2019-12-15] MEDS ORDERED: LIDOcaine Viscous 15ml cup MM ONE (20:55)
[2019-12-15 21:52] VITALS: BP 107/73
== END 2019-12-15 21:48 | disposition home or self-care (01) ==
LOC: ER 19:36
DX: R07.89 Other chest pain (principal); I48.91 Unspecified atrial fibrillation; Z98.51 Tubal ligation status; Z98.890 Other specified postprocedural states; Z79.899 Other long term (current) drug therapy
CPT/HCPCS: 36415; 71045; 80053; 83735; 83880; 84484; 85025; 85379; 93005; 96372; 99285; J1885

== ENCOUNTER 2020-01-05 08:21 | Emergency (ER) | payer MEDICAID ==
[~2020-01-05] VITALS: Ht 162.6 cm; Wt 118.2 kg
[2020-01-05 08:42] VITALS: BP 145/82
[2020-01-05] MEDS ORDERED: ketorolac trometh inj. 60 MG/2 ML VIAL IM ONE (09:05)
== END 2020-01-05 09:33 | disposition home or self-care (01) ==
LOC: ER 08:22
DX: G44.209 Tension-type headache, unspecified, not intractable (principal); M54.2 Cervicalgia; I48.91 Unspecified atrial fibrillation; G89.29 Other chronic pain; Z98.890 Other specified postprocedural states; Z98.51 Tubal ligation status; Z79.899 Other long term (current) drug therapy
CPT/HCPCS: 96372; 99283; J1885

== ENCOUNTER → 2020-02-14 | Emergency (ER) | payer MEDICAID ==
[~2020-02-14] VITALS: Ht 162.6 cm; Wt 122.7 kg
[2020-02-14 22:26] VITALS: BP 116/71
--- NOTE | 2020-02-15 00:08 | NUR ---
PT HAD MILD IRRITATION ON PALLATE, THERE WAS NO LESION OR ULCER THERE. PT ENCOURAGED DTO SWISH WITH WARM WATER AND SALT, SHE WAS ALSO INSTRUCTED TO KEEP DENTURES OUT MUCH POSSIBLE WHILE IT'S HEALING AND PUT DENTURES ON WHEN SHE EATS. SHE WAS INSTRUCTED IT CAN TAKE 1-2 WEEKS FOR ORAL TRAUMA TO HEAL. PT ALSO HAS LOWER INCISORS THAT NEED TO BE PULLED EVENTUALLY PER HER REPORT. NO SWELLING NOTED THERE. PT DEMANDED ANTIBIOTICS. SHE DENIES FEVERS OR CHILLS. PT STATES "I HAD MRSA BEFORE!" SHE STATES THE LAST TIME SHE HAD A MRSA INFECTION WAS "3 YEARS AGO"
== END | disposition home or self-care (01) ==
LOC: ER 22:16
DX: K08.89 Other specified disorders of teeth and supporting structures (principal); I48.91 Unspecified atrial fibrillation; G89.29 Other chronic pain; Z86.14 Personal history of Methicillin resistant Staphylococcus aureus infection; Z98.51 Tubal ligation status; Z98.890 Other specified postprocedural states; Z79.899 Other long term (current) drug therapy
CPT/HCPCS: 99281

== ENCOUNTER 2020-04-16 16:46 | Emergency (ER) | payer MEDICAID ==
[~2020-04-16] VITALS: Ht 167.6 cm; Wt 127.3 kg
[2020-04-16 16:50] VITALS: BP 148/84
--- NOTE | 2020-04-16 17:42 | NUR ---
Patient was brought back to bed 8 at which she then stated, "I don't need to be here." Patient would not wait for MD supervisor shop to come and speak with patient.
== END 2020-04-16 17:47 | disposition left against medical advice (07) ==
LOC: ER 16:47
DX: R00.2 Palpitations (principal); Z53.21 Procedure and treatment not carried out due to patient leaving prior to being seen by health care provider
CPT/HCPCS: 71045; 93005

== ENCOUNTER 2020-07-04 12:55 | Emergency (ER) | payer MEDICAID ==
[~2020-07-04] VITALS: Ht 162.6 cm; Wt 127.0 kg
[2020-07-04 12:59] VITALS: BP 158/82
[2020-07-04 13:23] LABS: CLARITY,URINE SLIGHTLY CLOUDY (Clear); COLOR,URINE YELLOW (Yellow); GLUCOSE, URINE NEGATIVE (Neg); KETONES,URINE NEGATIVE (Neg); LEUKOCYTE ESTERASE ,URINE TRACE (Neg); NITRITES, URINE POSITIVE (Neg); OCCULT BLOOD,URINE MODERATE (Neg); PH,URINE 5.5 (4.8-8.0); PROTEIN,URINE TRACE mg/dl (Neg); UROBILINOGEN,URINE 0.2 E.U/dL (0.2-1.0)
[2020-07-04 13:24] LABS: UA COLLECTION TYPE CLN CATCH MIDSTREAM
[2020-07-04 13:34] LABS: SQUAMOUS EPITHELIAL CELL,UR MANY /LPF (FEW)
[2020-07-04 13:35] LABS: BACTERIA,URINE 1+ /HPF (Neg); RBC,URINE 0-2 /HPF (0-2)
[2020-07-04 13:36] LABS: WBC CLUMPS,URINE FEW /HPF (NEGATIVE); WBC,URINE 50-100 /HPF (0-4)
[2020-07-04] MEDS ORDERED: CIPR-230 PO (13:56)
[2020-07-04] MEDS ORDERED: DOCU100C38 PO (14:39)
[2020-07-04] MEDS ORDERED: HYDR-4383 PO (14:39)
== END 2020-07-04 14:56 | disposition home or self-care (01) ==
LOC: ER 12:55
DX: S39.012A Strain of muscle, fascia and tendon of lower back, initial encounter (principal); N39.0 Urinary tract infection, site not specified; Z79.899 Other long term (current) drug therapy; Z98.51 Tubal ligation status; X58.XXXA Exposure to other specified factors, initial encounter; Y93.89 Activity, other specified; Y92.89 Other specified places as the place of occurrence of the external cause; Y99.8 Other external cause status; G89.29 Other chronic pain
CPT/HCPCS: 81001; 99283

== ENCOUNTER 2020-07-06 09:39 | Emergency (ER) | payer MEDICAID ==
[~2020-07-06] VITALS: Ht 162.6 cm; Wt 127.0 kg
[~2020-07-06 09:39] MED LIST changes: +CIPR-230 PO; +DOCU100C38 PO; +HYDR-4383 PO
[2020-07-06 09:42] VITALS: BP 142/61
[2020-07-06] MEDS ORDERED: ketorolac trometh. 30mg/ml inj. IM ONE (10:20)
[2020-07-06] MEDS ORDERED: LIDOcaine 5% patch TP ONE (10:20)
[2020-07-06] MEDS ORDERED: acetaminophen 325mg tablet PO ONE (10:20)
[2020-07-06] MEDS ORDERED: ketorolac trometh inj. 60 MG/2 ML VIAL IM ONE (10:20)
[2020-07-06 10:53] LABS: CLARITY,URINE CLEAR (Clear); COLOR,URINE YELLOW (Yellow); GLUCOSE, URINE NEGATIVE (Neg); KETONES,URINE NEGATIVE (Neg); LEUKOCYTE ESTERASE ,URINE NEGATIVE (Neg); NITRITES, URINE NEGATIVE (Neg); OCCULT BLOOD,URINE NEGATIVE (Neg); PROTEIN,URINE NEGATIVE (Neg); UROBILINOGEN,URINE 0.2 E.U/dL (0.2-1.0)
[2020-07-06 11:01] LABS: UA COLLECTION TYPE CLN CATCH MIDSTREAM
[2020-07-06] MEDS ORDERED: OXYC-145 PO (11:14)
[2020-07-06] MEDS ORDERED: BACL-11 PO (11:14)
== END 2020-07-06 11:26 | disposition home or self-care (01) ==
LOC: ER 09:40
DX: M54.89 Other dorsalgia (principal); R33.9 Retention of urine, unspecified; I48.91 Unspecified atrial fibrillation; G89.29 Other chronic pain; Z87.440 Personal history of urinary (tract) infections; Z86.14 Personal history of Methicillin resistant Staphylococcus aureus infection; Z98.51 Tubal ligation status; Z98.890 Other specified postprocedural states; Z79.2 Long term (current) use of antibiotics; Z79.899 Other long term (current) drug therapy
CPT/HCPCS: 81003; 96372; 99284; J1885